=== PATIENT | female | born 2005 | race Caucasian/White ===

== ENCOUNTER 2025-03-16 17:25 | Emergency (ER) | payer BC ==
[~2025-03-16] VITALS: Ht 162.6 cm; Wt 54.5 kg
[2025-03-16 17:30] VITALS: BP 139/85; PULSE 94; RESP 18; O2SAT 100
[2025-03-16 18:02] LABS: MEAN PLATELET VOLUME 8.8 FL (7.4-10.4); RED CELL DISTRIBUTION WIDTH 14.4 % (11.5-14.5)
[2025-03-16 18:19] LABS: CREATININE 0.75 MG/DL (0.40-0.90); TOTAL CARBON DIOXIDE 26.1 MMOL/L (24-32); eCRCL 102 ML/MIN; eGFR > 90 ML/MIN
--- NOTE | 2025-03-16 18:28 | Physician Documentation ---
History of Present Illness ~ Chief Complaint: Diarrhea Stated Complaint: STOMACH PAIN Time Seen by MD: 18:21 Mode of Arrival: POV HPI Patient presents to the emergency room evaluation abdominal pain that has been going on this past week. Also endorses diarrhea. No vomiting. She feels that that has seems to get worse with eating. History of celiac disease. No dysuria. Medication Reconciliation Allergies: Coded Allergies: amoxicillin (Verified Allergy, Unknown, rash, 03/16/25) Review of Systems ROS All review of systems negative except as per HPI Physical Exam Vital Signs: Temperature: 96.9, Source: Temporal, Heart Rate: 94, Respiratory R ate: 18, BP: 139/85, Pulse Oximetry: 100, Weight: 54.500 Oxygen Flow Rate: 0 Physical Exam General: Patient is awake, alert, oriented x4 in no acute distress and well appearing.~ Head: Normocephalic and atraumatic. Eyes: Conjunctival normal. EOMI. PERRL. ENT: Mucous membranes moist. Neck: Supple, trachea is midline. Chest: Clear to auscultation bilaterally without rales, rhonchi, or wheezes. There is no accessory muscle use or retractions. Cardiac: RRR without murmurs, gallops, or rubs. Abd: Soft, nondistended, positive Hartmann's sign. No peritonitis Progress Results/Orders Results/Orders Vital Signs 03/16/25 03/16/25 17:30 18:19 Temp 96.9 Pulse 94 Resp 18 B/P (MAP) 139/85 Pulse Ox 100 O2 Flow Rate 0 Laboratory Tests Test 03/16/25 17:48 White Blood Count 7.9 Red Blood Count 4.75 Hemoglobin 12.8 Hematocrit 39.3 Mean Corpuscular Volume 82.7 Mean Corpuscular Hemoglobin 26.9 L Mean Corpuscular Hemoglobin Concent 32.5 L Red Cell Distribution Width 14.4 Platelet Count 305 Mean Platelet Volume 8.8 Neutrophils (%) (Auto) 62.4 Lymphocytes (%) (Auto) 27.7 Monocytes (%) (Auto) 5.8 Eosinophils (%) (Auto) 3.6 Basophils (%) (Auto) 0.5 Neutrophils # (Auto) 5.0 Lymphocytes # (Auto) 2.2 Monocytes # (Auto) 0.5 Eosinophils # (Auto) 0.3 Basophils # (Auto) 0.0 CBC Comment Sodium Level 140 Potassium Level 3.5 Chloride Level 105 Carbon Dioxide Level 26.1 Anion Gap 9 Blood Urea Nitrogen 11 Creatinine 0.75 Estimated GFR/1.73 m2 > 90 BUN/Creatinine Ratio 14.7 Glucose Level 112 H Calcium Level 9.0 Total Bilirubin 0.2 Aspartate Amino Transf (AST/SGOT) 17 Alanine Aminotransferase (ALT/SGPT) 18 Alkaline Phosphatase 61 Total Protein 7.7 Albumin 4.1 Globulin 3.6 Albumin/Globulin Ratio 1.1 Lipase 31 Chemistry Comments Medical Decision Making Findings Patient presents to the emergency room with epigastric pain as per HPI. Differentials include but are not limited to gastritis cholecystitis pancreatitis viral syndrome colitis therefore emergent labs ordered. Labs reassuring as is ultrasound. Given reassuring labs that has well as vitals I feel the risk of radiation exposure outweighs any benefit at this juncture and I have recommended against CT scan and patient agrees. ER precautions regarding worsening of symptoms or fevers discussed. Departure Disposition: HOME / SELF CARE / HOMELESS Impression: Primary Impression: Abdominal pain Condition: Stable Discharge Instructions: Diarrhea, Adult Referrals: NO PRIMARY CARE PROVIDER (PCP) Signature Scribe Signature: No scribe Attestation: The note accurately reflects work and decisions made by me.Blaise Goldberg MD 03/16/25 18:28 BLAISE GOLDBERG MD Mar 16, 2025 18:28
--- NOTE | 2025-03-16 18:32 | RADIOLOGY REPORT ---
CLINICAL HISTORY: Epigastric and RUQ pain TECHNIQUE: Transabdominal sonogram was performed of the right upper quadrant. COMPARISON: None FINDINGS: The liver is normal in echogenicity. There is no focal parenchymal abnormality. No intrahepatic biliary ductal dilatation is present. The liver measures 15.6 cm. The gallbladder is normal with no evidence for stones or wall thickening. The common bile duct is normal in caliber, measuring 1.1 mm. The visualized pancreas is grossly unremarkable. The right kidney is normal in echogenicity and measures 10.4 cm in length. There is no evidence for hydronephrosis or calculi. IMPRESSION: NO SIGNIFICANT SONOGRAPHIC ABNORMALITY OF THE IMAGED RIGHT UPPER QUADRANT.
[2025-03-16 18:35] VITALS: TEMP 96.9
== END 2025-03-16 19:03 | disposition home or self-care (01) ==
LOC: ER 17:27
DX: R10.9 Unspecified abdominal pain (principal); Z88.1 Allergy status to other antibiotic agents
CPT/HCPCS: 36415; 76700; 80053; 83690; 85025; 99284